=== PATIENT | female | born 1985 | race African-American/Black ===

== ENCOUNTER 2017-03-09 18:33 | Inpatient (IN) | payer MEDICAID ==
[~2017-03-09] VITALS: Ht 160 cm; Wt 79.4 kg
[2017-03-09] MEDS ORDERED: SODIUM CHLORIDE 0.9% 1,000 ML IV ONE (20:51)
[2017-03-09 20:59] LABS: BASOPHILS % 0.8 % (0.0-2.0); HEMOGLOBIN. 8.8 g/dL (12.0-16.0); LYMPHOCYTES % 17.7 % (20.0-50.0); MEAN CORPUSCULAR HEMOGLOBIN 25.1 pg (28.0-32.0); MEAN CORPUSCULAR VOLUME 76.9 fL (81.0-99.0); MEAN PLATELET VOLUME 7.2 fl (7.4-10.4); MONOCYTES % 10.7 % (2.0-8.0); NEUTROPHILS % 69.8 % (40.0-76.0); PLATELET 410 x1000/uL (130-400); RED BLOOD CELL COUNT 3.52 mill/uL (4.2-5.4); RED CELL DISTRIBUTION WIDTH 17.6 % (11.6-14.6)
[2017-03-09 21:05] LABS: PARTIAL THROMBOPLASTIN TIME 24.5 sec (23.4-31.0); PROTHROMBIN TIME 10.9 sec (9.4-11.6)
[2017-03-09 21:06] LABS: HCG SCREEN NEGATIVE
[2017-03-09 21:10] LABS: CARBON DIOXIDE 29 mEq/L (21-32); CHLORIDE 104 mEq/L (98-107); TOTAL IRON BINDING CAPACITY 465 ug/dL (250-450); TROPONIN I < 0.02 ng/mL (0.00-0.04)
[2017-03-09 21:26] LABS: CLARITY URINE CLOUDY (CLEAR); COLOR URINE YELLOW (YELLOW); GLUCOSE URINE NEGATIVE (NEGATIVE); KETONES URINE NEGATIVE (NEGATIVE); LEUKOCYTE ESTERASE URINE NEGATIVE (NEGATIVE); NITRITE URINE NEGATIVE (NEGATIVE); OCCULT BLOOD URINE NEGATIVE (NEGATIVE); PH URINE 5.5 (4.5-8.0); PROTEIN URINE NEGATIVE (NEGATIVE); SPECIFIC GRAVITY URINE 1.025 (1.005-1.030); UROBILINOGEN URINE 0.2 E.U./dL (0.2-1.0)
[2017-03-09 23:11] VITALS: BP 114/68
[2017-03-09] MEDS ORDERED: ONDANSETRON HCL 4MG/2ML VIAL IV PRN (23:30)
[2017-03-09] MEDS ORDERED: ACETAMINOPHEN 325MG TABLET PO PRN (23:30)
[2017-03-09] MEDS ORDERED: MAGNESIUM/ALUMINUM HYDROXIDE/SIMETHICONE 30ML UDC PO PRN (23:30)
[2017-03-09] MEDS ORDERED: IPRATROPIUM/ALBUTEROL 0.5-3(2.5)MG/3ML NEB INH PRN (23:30)
[2017-03-09] MEDS ORDERED: CLONIDINE 0.1MG TABLET PO PRN (23:30)
[2017-03-10] VITALS: BP 114/68
[2017-03-10 04:00] VITALS: BP 100/51
[2017-03-10 07:24] LABS: BASOPHILS % 0.8 % (0.0-2.0); EOSINOPHILS % 1.6 % (0.0-5.0); HEMATOCRIT. 23.6 % (36.0-48.0); HEMOGLOBIN. 7.6 g/dL (12.0-16.0); LYMPHOCYTES % 27.3 % (20.0-50.0); MEAN CORPUSCULAR HEMOGLOBIN 24.6 pg (28.0-32.0); MEAN CORPUSCULAR VOLUME 76.4 fL (81.0-99.0); MEAN PLATELET VOLUME 7.6 fl (7.4-10.4); MONOCYTES % 11.2 % (2.0-8.0); NEUTROPHILS % 59.1 % (40.0-76.0); PLATELET 347 x1000/uL (130-400); RED BLOOD CELL COUNT 3.09 mill/uL (4.2-5.4); RED CELL DISTRIBUTION WIDTH 17.5 % (11.6-14.6)
[2017-03-10 08:00] VITALS: BP 117/41
[2017-03-10] MEDS: FERROUS SULFATE 325MG TABLET PO SCH ×2 (08:29→16:01)
[2017-03-10 09:39] LABS: *AMPHETAMINES SCREEN URINE NEGATIVE (NEGATIVE); *BARBITURATES SCREEN URINE NEGATIVE (NEGATIVE); *BENZODIAZEPINES SCREEN URINE NEGATIVE (NEGATIVE); *COCAINE SCREEN URINE NEGATIVE (NEGATIVE); CANNABINOID URINE SCREEN NEGATIVE (NEGATIVE); METHADONE URINE SCREEN NEGATIVE (NEGATIVE); OPIATES URINE SCREEN NEGATIVE (NEGATIVE); PHENCYCLIDINE URINE SCREEN NEGATIVE (NEGATIVE)
[2017-03-10 10:06] LABS: CARBON DIOXIDE 27 mEq/L (21-32); CHLORIDE 107 mEq/L (98-107); HDL CHOLESTEROL 68 mg/dL (40-59); LDL CHOLESTEROL 78 mg/dL (5-100)
[2017-03-10 10:13] LABS: CREATINE KINASE 70 IU/L (26-192); CREATINE KINASE MB FRACTION < 0.5 ng/mL (0.5-3.6); TROPONIN I < 0.02 ng/mL (0.00-0.04)
[2017-03-10 12:00] VITALS: BP 112/75
[2017-03-10 14:23] VITALS: BP 118/75
[2017-03-10 16:00] VITALS: BP 114/72
== END 2017-03-10 16:25 | disposition home or self-care (01) | DRG 532 ==
LOC: ER 18:33 → 8WST 21:20 → EDBEDREQ 21:32 → ENRESERV 21:39
PROVIDERS: ADMIT Internal Medicine; ATTEND Internal Medicine
DX: N92.0 Excessive and frequent menstruation with regular cycle (principal); J96.10 Chronic respiratory failure, unspecified whether with hypoxia or hypercapnia; F17.210 Nicotine dependence, cigarettes, uncomplicated; D50.9 Iron deficiency anemia, unspecified
CPT/HCPCS: 36415; 71010; 80048; 80053; 80061; 80305; 81001; 81025; 82550; 82553; 83540; 83550; 83690; 83735; 83880; 84443; 84484; 84703; 85025; 85044; 85379; 85610; 85730; 86850; 86900; 86920; 93005; 93970; 96360; 99285; J7030

== ENCOUNTER 2018-12-15 16:50 | Observation (INO) | payer MEDICAID ==
[~2018-12-15] VITALS: Ht 160 cm; Wt 81.2 kg
[2018-12-15 18:13] LABS: CLARITY URINE CLOUDY (CLEAR); COLOR URINE DARK YELLOW (YELLOW); KETONES URINE TRACE (NEGATIVE); LEUKOCYTE ESTERASE URINE TRACE (NEGATIVE); NITRITE URINE NEGATIVE (NEGATIVE); OCCULT BLOOD URINE NEGATIVE (NEGATIVE); PROTEIN URINE 1+ (NEGATIVE); SPECIFIC GRAVITY URINE 1.029 (1.005-1.030)
[2018-12-15 18:14] LABS: BASOPHILS % 0.3 % (0.0-2.0); EOSINOPHILS % 0.4 % (0.0-5.0); HEMATOCRIT. 28.2 % (36.0-48.0); HEMOGLOBIN. 9.3 g/dL (12.0-16.0); LYMPHOCYTES % 10.4 % (20.0-50.0); MEAN CORPUSCULAR HEMOGLOBIN 25.2 pg (28.0-32.0); MEAN CORPUSCULAR VOLUME 76.7 fL (81.0-99.0); MEAN PLATELET VOLUME 7.4 fl (7.4-10.4); MONOCYTES % 8.5 % (2.0-8.0); NEUTROPHILS % 80.4 % (40.0-76.0); PLATELET 388 x1000/uL (130-400); RED BLOOD CELL COUNT 3.68 mill/uL (4.2-5.4); RED CELL DISTRIBUTION WIDTH 16.7 % (11.6-14.6)
[2018-12-15 18:17] LABS: CHLORIDE 105 mEq/L (98-107)
== END 2018-12-15 20:30 | disposition home or self-care (01) ==
LOC: 8 EST LDRP 16:50
PROVIDERS: ADMIT Obstetrics & Gynecology; ATTEND Obstetrics & Gynecology
DX: O21.2 Late vomiting of pregnancy (principal); O26.893 Other specified pregnancy related conditions, third trimester; R42 Dizziness and giddiness; Z3A.31 31 weeks gestation of pregnancy
CPT/HCPCS: 36415; 76805; 76818; 80053; 81003; 85025; G0378

== ENCOUNTER 2018-12-15 20:36 | Emergency (ER) | payer MEDICAID ==
[~2018-12-15] VITALS: Ht 160 cm; Wt 81.0 kg
[2018-12-15 23:06] VITALS: BP 110/65
== END 2018-12-15 23:08 | disposition home or self-care (01) ==
LOC: ER 20:47
DX: O99.89 Other specified diseases and conditions complicating pregnancy, childbirth and the puerperium (principal); S01.81XA Laceration without foreign body of other part of head, initial encounter; S00.12XA Contusion of left eyelid and periocular area, initial encounter; Z3A.31 31 weeks gestation of pregnancy; W01.198A Fall on same level from slipping, tripping and stumbling with subsequent striking against other object, initial encounter; Y93.01 Activity, walking, marching and hiking; Y92.018 Other place in single-family (private) house as the place of occurrence of the external cause
CPT/HCPCS: 12011; 81025; 99283

== ENCOUNTER 2019-01-28 04:31 | Observation (INO) | payer MEDICAID ==
[~2019-01-28] VITALS: Ht 160 cm; Wt 83.9 kg
[2019-01-28] MEDS ORDERED: PNV1TABL50 PO (06:34)
[2019-01-28 08:44] LABS: CLARITY URINE CLEAR (CLEAR); COLOR URINE YELLOW (YELLOW); KETONES URINE NEGATIVE (NEGATIVE); LEUKOCYTE ESTERASE URINE NEGATIVE (NEGATIVE); NITRITE URINE NEGATIVE (NEGATIVE); OCCULT BLOOD URINE NEGATIVE (NEGATIVE); PROTEIN URINE NEGATIVE (NEGATIVE); SPECIFIC GRAVITY URINE 1.011 (1.005-1.030)
== END 2019-01-28 09:17 | disposition home or self-care (01) ==
LOC: 8 EST LDRP 04:31
PROVIDERS: ADMIT Obstetrics & Gynecology; ATTEND Obstetrics & Gynecology
DX: O26.899 Other specified pregnancy related conditions, unspecified trimester (principal); R06.6 Hiccough; Z3A.00 Weeks of gestation of pregnancy not specified
CPT/HCPCS: 76815; 76818; 81003; 99281; G0378

== ENCOUNTER 2019-02-12 05:15 | Inpatient (IN) | payer MEDICAID, OTHER ==
[~2019-02-12] VITALS: Ht 160 cm; Wt 81.6 kg
[~2019-02-12 05:15] MED LIST: PNV1TABL50 PO
[2019-02-12] MEDS ORDERED: LACTATED RINGERS 1,000 ML IV SCH (06:04)
[2019-02-12] MEDS ORDERED: METHYLERGONOVINE MALEATE 0.2 MG/ML IM PRN (06:15)
[2019-02-12] MEDS ORDERED: BUTORPHANOL TARTRATE 2 MG/ML VIAL IV PRN (06:15)
[2019-02-12] MEDS ORDERED: NALOXONE HCL 0.4 MG/ML 1ML VIAL IM PRN (06:15)
[2019-02-12] MEDS ORDERED: LIDOCAINE HCL 1% 20ML VIAL (Pyxis) INJ INFIL SCH (06:15)
[2019-02-12] MEDS ORDERED: PENICILLIN G POTASSIUM 5 MMU in DEXT 5% WATER 100 ML IV SCH (06:30)
[2019-02-12 07:09] LABS: CLARITY URINE CLOUDY (CLEAR); COLOR URINE YELLOW (YELLOW); KETONES URINE NEGATIVE (NEGATIVE); LEUKOCYTE ESTERASE URINE NEGATIVE (NEGATIVE); NITRITE URINE NEGATIVE (NEGATIVE); OCCULT BLOOD URINE NEGATIVE (NEGATIVE); PROTEIN URINE 2+ (NEGATIVE); SPECIFIC GRAVITY URINE 1.017 (1.005-1.030)
[2019-02-12 07:11] LABS: INR 0.9; PARTIAL THROMBOPLASTIN TIME 26.6 sec (23.4-31.0); PROTHROMBIN TIME 9.7 sec (9.6-11.0)
[2019-02-12 07:13] LABS: BASOPHILS % 0.4 % (0.0-2.0); EOSINOPHILS % 0.6 % (0.0-5.0); HEMATOCRIT. 27.9 % (36.0-48.0); HEMOGLOBIN. 9.1 g/dL (12.0-16.0); LYMPHOCYTES % 21.7 % (20.0-50.0); MEAN CORPUSCULAR HEMOGLOBIN 22.6 pg (28.0-32.0); MEAN CORPUSCULAR VOLUME 69.2 fL (81.0-99.0); MEAN PLATELET VOLUME 8.1 fl (7.4-10.4); MONOCYTES % 11.5 % (2.0-8.0); NEUTROPHILS % 65.8 % (40.0-76.0); PLATELET 382 x1000/uL (130-400); RED BLOOD CELL COUNT 4.04 mill/uL (4.2-5.4); RED CELL DISTRIBUTION WIDTH 18.8 % (11.6-14.6)
[2019-02-12 07:15] LABS: CHLORIDE 107 mEq/L (98-107)
[2019-02-12 07:22] LABS: *AMPHETAMINES SCREEN URINE NEGATIVE (NEGATIVE); *BARBITURATES SCREEN URINE NEGATIVE (NEGATIVE); *BENZODIAZEPINES SCREEN URINE NEGATIVE (NEGATIVE); CANNABINOID URINE SCREEN NEGATIVE (NEGATIVE)
[2019-02-12 07:23] LABS: *COCAINE SCREEN URINE NEGATIVE (NEGATIVE); METHADONE URINE SCREEN NEGATIVE (NEGATIVE); OPIATES URINE SCREEN NEGATIVE (NEGATIVE); PHENCYCLIDINE URINE SCREEN NEGATIVE (NEGATIVE)
[2019-02-12] MEDS ORDERED: ROPIVACAINE HCL/PF EPIDURAL 200 ML EPI SCH (07:30)
[2019-02-12] MEDS: DEXT 5%/LR + PITOCIN 20UNITS/L 1,000 ML IV SCH ×2 (10:52→17:57)
[2019-02-12 10:56] LABS: HEPATITIS B SURFACE ANTIGEN NEGATIVE
[2019-02-12] MEDS ORDERED: PENICILLIN G POTASSIUM 2.5 MMU in DEXTROSE 5% WATER 50 ML IV SCH (11:00)
[2019-02-12 11:04] LABS: PLATELET ESTIMATE NORMAL
[2019-02-12] MEDS: PENICILLIN G POTASSIUM 2.5 MMU in DEXTROSE 5% WATER 50 ML IV SCH ×2 (11:10→15:01)
[2019-02-12] MEDS ORDERED: LIDOCAINE HCL 2%/EPINEPHRINE 1:100,000 20 ML VIAL INFIL ONE (13:17)
[2019-02-12] MEDS ORDERED: DEXT 5%/LR + PITOCIN 20UNITS/L 1,000 ML IV SCH (16:34)
[2019-02-12] MEDS ORDERED: INFLUENZA VIRUS VACCINE(AFLURIA) 0.5ML SYR IM ONE (16:45)
[2019-02-12] MEDS ORDERED: TETANUS, DIPHTHERIA, PERTUSSIS VAC/PF 0.5ML (>7YR OLD) IM ONE (16:45)
[2019-02-12] MEDS ORDERED: DIPHENHYDRAMINE 25MG CAPSULE PO PRN (16:45)
[2019-02-12] MEDS ORDERED: RHO(D) IMMUNE GLOBULIN 300 MCG/SYR IM PRN (16:45)
[2019-02-12] MEDS ORDERED: BENZOCAINE/LANOLIN/ALOE VERA SPRAY TOP PRN (16:45)
[2019-02-12] MEDS ORDERED: LANOLIN OINT 7GM TUBE TOP PRN (16:45)
[2019-02-12] MEDS ORDERED: BISACODYL 10MG SUPP PR PRN (16:45)
[2019-02-12] MEDS ORDERED: HEMORRHOIDAL SUPP PR PRN (16:45)
[2019-02-12] MEDS ORDERED: IBUPROFEN 400MG TABLET PO PRN (16:45)
[2019-02-12] MEDS ORDERED: GLYCERIN/WITCH HAZEL LEAF MEDICATED PAD TOP PRN (16:45)
[2019-02-12] MEDS ORDERED: KETOROLAC 30MG/ML VIAL IV NR (17:35)
[2019-02-12 19:00] VITALS: BP 138/74
[2019-02-12 19:30] VITALS: BP 142/71
[2019-02-12 20:00] VITALS: BP 138/72
[2019-02-12] MEDS: DOCUSATE SODIUM 100MG CAPSULE PO SCH (21:01)
[2019-02-12] MEDS: SIMETHICONE 80MG TABLET CHEW PO SCH (21:01)
[2019-02-12] MEDS: ACETAMINOPHEN WITH CODEINE 300/30MG TABLET PO PRN (21:03)
[2019-02-12 23:45] VITALS: BP 138/80
[2019-02-13 06:53] LABS: BASOPHILS % 0.4 % (0.0-2.0); EOSINOPHILS % 0.1 % (0.0-5.0); HEMATOCRIT. 23.5 % (36.0-48.0); HEMOGLOBIN. 7.5 g/dL (12.0-16.0); LYMPHOCYTES % 8.8 % (20.0-50.0); MEAN CORPUSCULAR HEMOGLOBIN 22.1 pg (28.0-32.0); MEAN CORPUSCULAR VOLUME 69.5 fL (81.0-99.0); MEAN PLATELET VOLUME 8.1 fl (7.4-10.4); MONOCYTES % 10.1 % (2.0-8.0); NEUTROPHILS % 80.6 % (40.0-76.0); PLATELET 340 x1000/uL (130-400); RED BLOOD CELL COUNT 3.38 mill/uL (4.2-5.4); RED CELL DISTRIBUTION WIDTH 18.7 % (11.6-14.6)
[2019-02-13 08:00] VITALS: BP 120/78
[2019-02-13] MEDS: PRENATAL VIT/FE FUMARATE/FA TABLET PO SCH (08:08)
[2019-02-13] MEDS: IBUPROFEN 800MG TABLET PO PRN ×2 (08:08→22:21)
[2019-02-13] MEDS: SIMETHICONE 80MG TABLET CHEW PO SCH ×4 (08:09→21:42)
[2019-02-13] MEDS: ACETAMINOPHEN WITH CODEINE 300/30MG TABLET PO PRN ×2 (17:30→23:13)
[2019-02-13 17:49] VITALS: BP 122/65
[2019-02-13] MEDS: FERROUS SULFATE 325MG TABLET PO SCH (18:21)
[2019-02-13 21:36] VITALS: BP 127/77
[2019-02-13] MEDS: DOCUSATE SODIUM 100MG CAPSULE PO SCH (21:41)
[2019-02-14 06:07] VITALS: BP 133/86
[2019-02-14] MEDS: IBUPROFEN 800MG TABLET PO PRN (08:54)
[2019-02-14] MEDS: FERROUS SULFATE 325MG TABLET PO SCH (08:54)
[2019-02-14] MEDS: PRENATAL VIT/FE FUMARATE/FA TABLET PO SCH (08:54)
[2019-02-14] MEDS: SIMETHICONE 80MG TABLET CHEW PO SCH (08:54)
== END 2019-02-14 11:45 | disposition home or self-care (01) | DRG 560 ==
LOC: OBSVTOIN 05:15 → 8 EST LDRP 05:15 → 8EST 18:04
PROVIDERS: ADMIT Obstetrics & Gynecology; ATTEND Obstetrics & Gynecology
PROC: 10E0XZZ Delivery of Products of Conception, External Approach (ICD-10-PCS; principal; 2019-02-12)
PROC: 3E0R3BZ Introduction of Anesthetic Agent into Spinal Canal, Percutaneous Approach (ICD-10-PCS; 2019-02-12)
PROC: 00HU33Z Insertion of Infusion Device into Spinal Canal, Percutaneous Approach (ICD-10-PCS; 2019-02-12)
PROC: 0KQM0ZZ Repair Perineum Muscle, Open Approach (ICD-10-PCS; 2019-02-12)
DX: O99.824 Streptococcus B carrier state complicating childbirth (principal); O98.32 Other infections with a predominantly sexual mode of transmission complicating childbirth; D64.9 Anemia, unspecified; O69.81X0 Labor and delivery complicated by cord around neck, without compression, not applicable or unspecified; A63.0 Anogenital (venereal) warts; O70.1 Second degree perineal laceration during delivery; O99.02 Anemia complicating childbirth; Z3A.40 40 weeks gestation of pregnancy; Z37.0 Single live birth; Z91.013 Allergy to seafood
CPT/HCPCS: 36415; 80305; 81003; 82962; 84550; 85384; 86592; 86703; 86762; 86850; 86900; 87340; 90715; 99281; G0378; J1885; J2540; J2590; J2795; J3490; J7060; J7120; A4315